=== PATIENT | male | born 1975 | race Caucasian/White ===

== ENCOUNTER 2025-03-08 13:48 | Emergency (ER) | payer BC, SELFPAY ==
--- NOTE | ~2025-03-08 | XR_ITS ---
EXAMINATION: XR CHEST CLINICAL INFORMATION: pain COMPARISON: June 11, 2011. TECHNIQUE: Frontal view of the chest was obtained. FINDINGS: No consolidation, pleural effusion or pneumothorax. Cardiomediastinal silhouette size is normal. Mild S-shaped curvature of the thoracic spine. XR/XR chest 1V IMPRESSION: No acute airspace disease. Electronically signed by: Ever Castillo MD 03/08/2025 03:42 PM EDT
--- NOTE | 2025-03-08 13:50 | ECG_ITS ---
Test Reason : CHEST PAIN Blood Pressure : */* mmHG Vent. Rate : 112 BPM Atrial Rate : 112 BPM P-R Int : 164 ms QRS Dur : 92 ms QT Int : 334 ms P-R-T Axes : 42 -38 66 degrees QTcB Int : 455 ms Sinus tachycardia Possible Left atrial enlargement Left axis deviation Abnormal ECG When compared with ECG of 16-Nov-2011 03:23, No significant changes seen Referred By: Loyda Wetzel Electronically Signed By: PREETHI MONREAL MD
--- NOTE | 2025-03-08 14:06 | ED.GENADULT ---
HPI - General Adult General Chief complaint: Chest Pain Stated complaint: chest discomfort not feeling right Time Seen by Provider: 03/08/25 14:19 Source: patient and old records reviewed Mode of arrival: ambulatory Limitations: no limitations History of Present Illness ED Provider: RAYMUNDO RAMOS narrative: 49 yo male with PMH of HTN, HLD, here with c/o not taking any medications since 2019. He notes he has not really been taking care of himself. He notes no cocaine abuse, no ETOH use. He has felt intermittent sharp pains, chest feels 'not right' for about a month. He denies any preceding URI symptoms or travel/procedures. He notes it is not brought on by exertion. He denies leg swelling/dyspnea. He notes caffeine makes him more jittery and his heart races. He denies cough/fevers. He states he thinks his HR in past was mildly elevated but he cannot give me more further details. he has no fam hx of early CAD or known CAD MD complaint: chest pain/HTN Onset (ago): month(s) (1) Location: chest Radiation: non-radiation Severity: mild Quality: dull Pain Consistency: intermittent Relieving factors: none Exacerbating factors: none Associated symptoms: denies other symptoms Treatments prior to arrival: none Related Data Previous Rx's ?Medication ?Instructions ?Recorded simvastatin 10 mg tablet 10 mg PO BEDTIME #90 tabs 10/13/20 lisinopril 20 1 tab PO DAILY #90 tabs 04/11/21 mg-hydrochlorothiazide 12.5 mg tablet nirmatrelvir 300 mg (150 mg See Rx Instructions PO .COMPLEX 05/17/22 x2)-ritonavir 100 mg tablet,dose #30 ea pack (Paxlovid) metoprolol succinate 25 mg 25 mg PO DAILY #30 tabs 03/08/25 tablet,extended release 24 hr Allergies Allergy/AdvReac Type Severity Reaction Status Date / Time No Known Allergies Allergy Verified 03/08/25 14:14 Review of Systems Review of Systems: Constitutional : No Fever, No Chills, No Fatigue ENT/Mouth : No sore throat, No Rhinorrhea Eyes: No Eye Pain, No Swelling, No Redness Cardiovascular : pos Chest Pain, No SOB, No Dyspnea on Exertion Respiratory : No Cough, No Sputum Gastrointestinal : No Nausea, No Vomiting, No Diarrhea, No abdominal Pain Genitourinary : No Dysuria, No Urinary Frequency, No Hematuria, Musculoskeletal : No joint pain, No Myalgias, No Joint Swelling Skin : No Skin Lesions, No rash Neuro : No Weakness, No Numbness, No Dizziness, no Headache All other systems reviewed and are negative [facility] Past Medical History Attestation statement: The following information was validated with the patient. Source: old records reviewed Medical History Anxiety Fatty liver Hypertension Obesity (BMI 30-39.9) Herpes zoster auricularis Hypercholesterolemia Surgical History History of wisdom tooth extraction Family History Family History (Updated 07/08/20 @ 12:35 by Iva Barron) Father Diabetes Hypertension Skin cancer Mother Breast cancer Social History Social History Smoked in Last 30 Days: No Advance Directives: No Advance Directives Information Provided: Yes Physical Exam ED Vital Signs: Vital Signs - 24 hr 03/08/25 14:07 03/08/25 14:33 03/08/25 15:57 Temperature 98.4 F 98.8 F Pulse Rate 118 H 109 H 96 Respiratory Rate 16 18 18 Blood Pressure 179/103 H 173/102 H 136/99 H Pulse Oximetry 99 99 98 Oxygen Delivery Method Room Air Room Air Room Air BMI result Body Mass Index 37.1 Appearance: Alert. Oriented X3. No acute distress. Eyes: Pupils equal, round and reactive to light. ENT: Pharynx normal. Neck: Normal inspection. Neck supple. CVS: tacycardic heart rate and rhythm. Pulses normal. Respiratory: No respiratory distress. Breath sounds normal. Abdomen: Soft and nontender. Skin: Skin warm and dry. Normal skin color. Normal skin turgor. Extremities: No lower extremity edema. No calf ttp Neuro: Oriented X 3. No motor deficit. No sensory deficit. CN2-12 intact Course Course Course Narrative: RME performed by Loyda Wetzel PA-C. Patient is a 49 year old assigned male at presenting to the emergency department with chest pain and not taking care of himself. Detailed physical exam and review of systems are deferred to the physician assistant primary care. EKG, labs, imaging ordered. Patient placed back in the waiting room pending room availability and results. Procedures Procedure Narrative Procedure Narrative: EMERGENCY ULTRASOUND INTERPRETATION-Limited Echocardiography? The study reveals:? Impression: NORMAL LV FUNCTION, NO RV DYSFUNCTION, NO PERICARDIAL EFFUSION Emergent Cardiac for Indication:?chest pains Views Used: PLAX, A4, SX, IVC Pericardial Effusion/Tamponade Findings: NONE RV Dilation (> LV diam in 4ch apical):? NONE Global LV Fxn: NORMAL IVC Dilation and Resp Variation: NORMAL Performed by: RAYMUNDO Date: 03/08/25 Time: 418pm CPT:17634; Reference Codes? https://bit.[employer]/[email or web address] Medical Decision Making Medical Decision Making MDM Narrative: 49 yo male with PMH of HTN, HLD, here with c/o not feeling well in his chest but no exertional chest pain. He has tachycardia and HTN on exam but this seems chronic - at this time he is low prob VTE, he has symmetric distal pulses and given timeline of symptoms doubt dissection. His symptoms are atypical for ACS - at this time he will need labs, EKG, ddimer, TSH Differential Diagnosis Differential Diagnoses: The differential diagnosis associated with the presentation includes HTN uncontrolled, low prob VTE, atypical for ACS, thyroid issue Admission/Observation Consideration of admission/observation: Escalation of care including admission/observation considered neg trop x2, ddimer neg VS improved bedside ECHO no effusion CXR normal can be managed as outpatient heart score is 3 will DC on metoprolol Lab Data [facility] Lab Attestation statement: I reviewed the patient's lab results. 03/08/25 14:32 03/08/25 14:32 Labs: Lab Results 03/08/25 03/08/25 Range/Units 14:32 16:04 WBC 6.9 (4.8-10.8) X10*3/uL RBC 5.20 (4.60-5.80) X10*6/uL Hgb 14.9 (14.0-18.0) g/dl Hct 43.1 (42.0-52.0) % MCV 82.9 (80.0-98.0) fL MCH 28.7 (27.0-33.0) pg MCHC 34.6 (31.0-36.0) g/dl RDW 13.1 (11.0-16.0) % Plt Count 231 (160-400) X10*3/uL MPV 8.3 L (9.4-12.4) fL Immature Gran % (Auto) 0.4 (0.0-0.4) % Neut % (Auto) 67.5 (45-73) % Lymph % (Auto) 21.6 (20-40) % [place] % (Auto) 9.8 (2-11) % Eos % (Auto) 0.4 (0-4) % Baso % (Auto) 0.3 (0-2) % Lymph # (Auto) 1.5 (1.2-4.9) X10*3/uL [place] # (Auto) 0.7 (0.1-1.2) X10*3/uL Eos # (Auto) 0.0 (0.0-0.4) X10*3/uL Baso # (Auto) 0.0 (0.0-0.2) X10*3/uL Abs Immat Gran (auto) 0.03 (0.00-0.03) X10*3/uL Absolute Neuts (auto) 4.6 (2.0-8.3) x10*3/uL Absolute Nucleated RBC 0.000 (0.0-0.012) X10*3/uL Nucleated RBC % (auto) 0.0 (0.0-0.2) /100WBC PT 11.5 (10.9-12.4) SEC INR 1.0 (0.9-1.1) D-Dimer High Sensitivty < 150 NG/ML Sodium 140 (135-145) mmol/L Potassium 3.8 (3.3-5.1) mmol/L Chloride 107 (96-108) mmol/L Carbon Dioxide 25 (22-29) mmol/L Anion Gap 12 (12-20) BUN 16 (9-16) mg/dL Creatinine 0.81 (0.5-1.4) mg/dL Estim Creat Clear Calc 135.8 Estimated GFR > 60 Random Glucose 101 (60-115) mg/dL Calcium 9.6 (8.4-10.2) mg/dL Magnesium 2.1 (1.6-2.6) mg/dL Total Bilirubin 0.6 (0.0-1.0) mg/dL AST 26 (5-37) U/L ALT 33 (0-40) U/L Alkaline Phosphatase 70 (39-117) U/L Troponin I High Sens < 2.7 < 2.7 (<3.5-35.0) ng/L B-Natriuretic Peptide < 10 (<100) pg/mL Total Protein 7.6 (6.5-8.0) g/dL Albumin 4.8 (3.5-5.0) g/dL TSH 1.32 (0.32-4.0) uIU/mL Independent Interpretation I performed an independent interpretation of an: EKG and Plain X-Ray (normal ) Interpretation: Rate: 112 Rhythm: sinus tach [place]: left Normal P waves. Normal KEISHA. Normal QRS complex. ST T wave : inverted t wave V1, nonspecific ST change V2, no DEBORAH qTC: 455 prior studies: no sig changes The study has been interpreted contemporaneously by me. . Radiology Impression Discussion of test interpretation with radiology: I have reviewed the radiologist's reading. External Record Review External record reviewed: Outpatient record Prescription Management I considered prescription management with: Other Discharge Plan Discharge Clinical Impression: Atypical chest pain Hypertension Qualifiers: Hypertension type: unspecified Qualified Code(s): I10 - Essential (primary) hypertension Patient Disposition: Home, Self-Care Instructions: Metoprolol (By mouth), Chest Pain (ED), Chronic Hypertension (ED) Additional Instructions: repeat labs normal test for blood clot negative no effusion around the heart EKG no significant change from prior chest xray reassuring at this time you need to start on blood pressure medications - hold if HR less than 50 or blood pressure top number is less than 90 or you have dizziness check your blood pressure at the same time daily return for any worsening symptoms or no improvements in the next 1 week Prescriptions: New metoprolol succinate 25 mg tablet extended release 24 hr 25 mg PO DAILY Qty: 30 2RF No Action simvastatin 10 mg tablet 10 mg PO BEDTIME Qty: 90 1RF lisinopril-hydrochlorothiazide 20-12.5 mg tablet 1 tab PO DAILY Qty: 90 2RF Paxlovid 300 mg (150 mg x 2)-100 mg tablets,dose pack See Rx Instructions PO .COMPLEX Qty: 30 0RF Rx Instructions: take TWO 150 mg tablets of nirmatrelvir with ONE 100 mg tablet of ritonavir twice daily for 5 days PO Print Language: Croatian
[2025-03-08 14:07] VITALS: BP 179/103; PULSE 118; RESP 16; TEMP 36.9; O2SAT 99; BMI 37.1
[2025-03-08 14:33] VITALS: BP 173/102; PULSE 109; RESP 18; O2SAT 99
[2025-03-08 14:36] LABS: MANUAL DIFF FLAG NO
[2025-03-08 14:43] LABS: Prothrombin Time 11.5 SEC (10.9-12.4)
[2025-03-08 14:44] LABS: Basophils Percent Auto 0.3 % (0-2); Eosinophils Percent Auto 0.4 % (0-4); Hematocrit 43.1 % (42.0-52.0); Hemoglobin 14.9 g/dl (14.0-18.0); Imm Gran Abs Auto 0.03 X10*3/uL (0.00-0.03); Imm Gran Pct Auto 0.4 % (0.0-0.4); Lymphocytes Absolute Auto 1.5 X10*3/uL (1.2-4.9); Lymphocytes Percent Auto 21.6 % (20-40); Mean Corpuscular HGB Conc 34.6 g/dl (31.0-36.0); Mean Corpuscular Hemoglobin 28.7 pg (27.0-33.0); Mean Corpuscular Volume 82.9 fL (80.0-98.0); Mean Platelet Volume 8.3 fL (9.4-12.4); Monocytes Absolute Auto 0.7 X10*3/uL (0.1-1.2); Monocytes Percent Auto 9.8 % (2-11); Neutrophils Absolute Auto 4.6 x10*3/uL (2.0-8.3); Neutrophils Percent Auto 67.5 % (45-73); Platelet Count 231 X10*3/uL (160-400); Red Cell Distribution Width 13.1 % (11.0-16.0); White Blood Count 6.9 X10*3/uL (4.8-10.8)
[2025-03-08 14:53] LABS: D Dimer High Sensitivity < 150 NG/ML
[2025-03-08 14:56] LABS: B Type Natriuretic Peptide < 10 pg/mL (<100)
[2025-03-08 14:58] LABS: Alanine Aminotransferase 33 U/L (0-40); Albumin Level 4.8 g/dL (3.5-5.0); Alkaline Phosphatase 70 U/L (39-117); Anion Gap 12 (12-20); Aspartate Amino Transferase 26 U/L (5-37); Bilirubin Total 0.6 mg/dL (0.0-1.0); Blood Urea Nitrogen 16 mg/dL (9-16); Calcium 9.6 mg/dL (8.4-10.2); Carbon Dioxide 25 mmol/L (22-29); Chloride 107 mmol/L (96-108); Creatinine Clr Calc Pharmacy 135.8; Estimated Glomerular Filt Rate > 60; Glucose Random 101 mg/dL (60-115); Magnesium 2.1 mg/dL (1.6-2.6); Potassium 3.8 mmol/L (3.3-5.1); Sodium 140 mmol/L (135-145); Total Protein 7.6 g/dL (6.5-8.0)
[2025-03-08 14:59] LABS: Troponin-I High Sensitivity < 2.7 ng/L (<3.5-35.0)
[2025-03-08 15:13] LABS: TSH reflex Free T4 1.32 uIU/mL (0.32-4.0)
[2025-03-08 15:57] VITALS: BP 136/99; PULSE 96; RESP 18; TEMP 37.1; O2SAT 98
[2025-03-08 16:28] LABS: Troponin-I High Sensitivity < 2.7 ng/L (<3.5-35.0)
[2025-03-08 16:43] VITALS: BP 136/99; PULSE 96; RESP 18; TEMP 37.1; O2SAT 98
== END 2025-03-08 16:46 | disposition home or self-care (01) ==
PROVIDERS: Physician Assistant Medical; Emergency Provider Emergency Medicine
DX: R07.89 Other chest pain (principal); R00.0 Tachycardia, unspecified; I10 Essential (primary) hypertension; E78.00 Pure hypercholesterolemia, unspecified; Z79.02 Long term (current) use of antithrombotics/antiplatelets; Z79.899 Other long term (current) drug therapy
CPT/HCPCS: 36415; 71045; 80053; 83735; 83880; 84443; 84484; 85025; 85379; 85610; 93005; 99283; 99285

== ENCOUNTER → 2025-03-08 13:50 | Outpatient (BNV) | payer BC, SELFPAY | PROVIDERS: Emergency Provider Emergency Medicine; Visit Provider Internal Medicine Cardiovascular Disease | DX: R00.0 Tachycardia, unspecified (principal) | CPT/HCPCS: 93010 ==

== ENCOUNTER → 2025-03-08 14:59 | Outpatient (BNV) | payer BC, SELFPAY | PROVIDERS: Emergency Provider Emergency Medicine; Visit Provider Radiology Diagnostic Radiology | DX: R07.9 Chest pain, unspecified (principal) | CPT/HCPCS: 71045 ==